=== PATIENT | female | born 1970 | race Caucasian/White ===

== ENCOUNTER 2016-07-04 19:54 | Inpatient (IN) ==
[2016-07-04] MEDS ORDERED: ASPIRIN 325 MG TABLET PO STA (20:25)
[2016-07-04] MEDS ORDERED: ONDANSETRON 4 MG/2 ML VIAL IV STA (20:25)
[2016-07-04] MEDS ORDERED: FUROSEMIDE 100 MG/10 ML VIAL IV STA (20:25)
[2016-07-04] MEDS ORDERED: NITROGLYCERIN 2% OINT 1 INCH/GM PACK TOP STA (20:25)
[2016-07-04] MEDS ORDERED: MORPHINE 2 MG/1 ML SYRINGE IV STA (20:25)
[2016-07-04] MEDS ORDERED: hydrALAZINE 20 MG/1 ML VIAL IV STA ×2 (20:25→21:09)
--- NOTE | 2016-07-04 20:27 | Emergency Department Note ---
IJudith Kasabria, am scribing for, and in the presence of, Gustabo Ball MD 20:26. IQuinn Charles R, MD, personally performed the services described in this documentation, ascribed by Maria Del Carmen Wong in my presence, and it is both accurate and complete . Arrival - Arrival Chief Complaint: Blood Pressure Stated Complaint: BP and s. feet ED Nursing Triage Note: pt to triage c/o elevated blood pressure . pt states her bp has been up all. pt states she called dr kruger's office and was told to come to ed. pt lso c.o left knee pain. she slipped in the yard today. Mode of Arrival: Ambulatory Limitations: No Limitations Source: Patient Time Seen by Provider: 07/04/16 20:12 - History of Present Illness HPI Narrative: Pt is a 46 y/o white female presenting to the ED with c/o elevated blood pressure that onset this afternoon. Pt states she has intermittent chest pressure and intermittent SOB. While in the yard today she slipped and fell resulting in a contusion to her left knee. Pt sees Dr. Kruger and called his office today and was told to come to the ED. She denies fever, chills, nausea, vomiting, diarrhea, abdominal pain, numbness, tingling, [place], vision change, and vertigo. Pt is ambulatory but states it is hard to walk. Her PMHx consist of HTN , seizures, anxiety, COPD, and asthma. She has been off her seizure medications for some time and her last seizure has been over three years ago. Consistency: constant Severity: moderate Allergies/Adverse Reactions: Allergies Allergy/AdvReac Type Severity Reaction Status Date / Time No Known Allergies Allergy Unverified 07/04/16 20:07 Home Medications: Home Medications Medication Instructions Recorded Confirmed Type Aspirin EC Tab 81 mg PO DAILY 07/06/15 06/01/16 History Mometasone/Formoterol 200-5 2 puff INH BID 07/06/15 06/01/16 History [Dulera 200-5] Omeprazole [Prilosec] 20 mg PO DAILY 07/06/15 06/01/16 History Albuterol Sulfate [Proair HFA] 1 puff INH Q6H PRN 03/30/16 06/01/16 History Escitalopram [Lexapro] 10 mg PO BEDTIME 03/30/16 06/01/16 History Lisinopril/Hydrochlorothiazide 1 tablet PO DAILY 03/30/16 06/01/16 History [Lisinopril-Hctz 20-25 mg Tab] amLODIPine [Norvasc] 5 mg PO DAILY #90 tablet 03/31/16 06/01/16 Rx Ciprofloxacin Tab [Cipro Tab] 500 mg PO Q12HR 10 Days 06/01/16 Rx Dicyclomine Cap/Tab [Bentyl 20 mg PO QID PRN #20 tablet 06/01/16 Rx Cap/Tab] Ondansetron [Ondansetron Odt] 8 mg PO Q4H PRN #10 tab.rapdis 06/01/16 Rx Valsartan/Hydrochlorothiazide 1 each PO DAILY 06/01/16 06/01/16 History [Valsartan-Hctz 320-12.5 mg Tab] hydrALAZINE TAB [Apresoline Tab] 50 mg PO TID 06/01/16 06/01/16 History metroNIDAZOLE TAB [Flagyl Cap/Tab] 500 mg PO TID #30 tablet 06/01/16 Rx HYDROcodone/ACETAMIN 10-325 [[place] 1 tablet PO Q6H PRN 06/02/16 06/02/16 History 10-325] Acetaminophen Tab [Tylenol Tab] 325 mg PO Q4H PRN #0 tablet 06/05/16 Rx Atenolol 12.5 mg PO DAILY #30 tablet 06/05/16 Rx Review of System - Review of System 12 point system: reviewed and no additional remarkable complaints except as stated - Review of System Constitutional: Absent: chills, fever, weakness Eyes: Absent: vision change Head/Ears/Nose/Throat: Absent: nasal drainage Respiratory: Absent: cough, wheezing Cardiovascular: Present: chest pain (intermittent pressure ), dyspnea on exertion (intermittent ). Absent: syncope Gastrointestinal: Absent: abdominal pain, nausea, vomiting Genitourinary female: Absent: dysuria Musculoskeletal: Present: other (left knee contusion ). Absent: arm pain, back pain, leg pain, neck pain Skin: Absent: rash Neurological: Absent: headache, weakness, confusion, abnormal gait, vertigo Psychiatric: Absent: anxiety Endocrine: Absent: fatigue Hematological/Lymphatic: Absent: easy bleeding Allergic/Immunologic: Absent: facial swelling Medical,Surgical,& Family Hx - Medical History Cardio: History of: Cardiac Dysrhythmia (A-Fib), Hypertension, Cardiovascular Problems (implanted heart monitor) Psychological: History of: Anxiety Disorders Neurology: History of: Seizures (last seizure 2 years) Endocrine: History of: Dyslipidemia Respiratory: History of: Asthma, COPD, Obstructive Sleep Apnea (uses cpap) Genitourinary: History of: Bladder Problem (overactive bladder) Gastrointestinal: History of: GERD, GI Problems (abnormal ct abdomen-2016) No history of: Hemorrhoids, Hepatitis, Liver Problems Musculoskeletal: History of: Back/Neck Problems, Osteoporosis, Musculoskeletal Problems Hematology: No history of: Blood Transfusion Reaction Reproductive: History of: Abnormal Pap Smear (HPV), Reproductive Cancer ( cervical cancer) Other: History of: Cancer (cervical cancer) No history of: Anesthesia Reactions - Surgical History Cardiac Surgeries: Sugical HX of: Cardiac Surgery (cardiomyopathy) Patient Denies: Cardiac Catheterization HEENT Surgeries: Patient denies: Tonsilectomy & Adenoidectomy Abdominal Surgeries: Surgical HX of: Cholecystectomy Patient denies: Hernia Repair Reproductive Surgeries: Surgical HX of;: Hysterectomy (partial hyst with radiation) Patient denies;: Genitourinary Surgery Orthopedic Surgeries: Patient denies;: Orthopedic Surgery - Family History Family History: Reports;: Family Cancer (mother-breast), Family Diabetes (mother ), Family Heart Disease (mother) - Social History Smoking Status: Never smoker Frequency of Alcohol Use: None Type of Drug Use: None Exam Vital Signs: Vital Signs Temperature 96.8 F L 07/04/16 20:11 Pulse Rate 91 H 07/04/16 20:11 Respiratory Rate 18 07/04/16 20:11 Blood Pressure 181/148 07/04/16 20:11 O2 Sat by Pulse Oximetry 98 07/04/16 20:02 - General General appearance: alert, in no apparent distress - Head Head exam: Present: atraumatic, normocephalic, normal inspection - Eye Eye exam: Present: normal appearance, PERRL, EOMI - ENT ENT exam: Present: normal exam, normal oropharynx, mucous membranes moist, TM's normal bilaterally, normal external ear exam - Neck Neck exam: Present: normal inspection, full ROM, trachea midline. Absent: tenderness - Chest Chest inspection: Present: normal inspection, symmetric chest wall rise. Absent : tenderness - Respiratory Respiratory exam: Present: rales (at the base of lungs bilaterally ). Absent: normal lung sounds bilaterally, prolonged expiratory phase, wheezes - Cardiovascular Cardiovascular exam: Present: regular rate, normal rhythm, normal heart sounds - Abdominal Exam Abdominal exam: Present: soft, normal bowel sounds. Absent: distention, tenderness, guarding - Extremities Exam Extremities exam: Present: full ROM, normal capillary refill, pedal edema (+1 bilaterally ), other (contusion to left knee ). Absent: normal inspection, tenderness, calf tenderness - Back Exam Back exam: Present: normal inspection, full ROM. Absent: tenderness - Neurological Exam Neurological exam: Present: alert, oriented X3, CN II-XII intact, normal gait, reflexes normal - Psychiatric Psychiatric exam: Present: normal affect, normal mood - Skin Skin exam: Present: warm, dry, intact, normal color. Absent: rash, diaphoresis Course - Consultations Consultation #1: Hospitalist will admit patient Time: 22:13 Results - Labs CBC & BMP: 07/04/16 20:14 07/04/16 20:14 Lab Results: I have reviewed the patients labs Critical Care Time Critical Care Time: Yes Total Critical Care Time: 60 Disposition Clinical Impression: Malignant essential hypertension, Chest pain, Syncope, Dizzy spells, Polymorphic ventricular tachycardia Case discussed with: patient, patient's family Disposition: Still a Patient Condition: Stable Time of Disposition: 22:14
[2016-07-04 20:31] LABS: Basophils % 0.2 % (0.0-0.8); Eosinophils # 0.2 10*3/uL (0.0-0.87); Eosinophils % 1.8 % (0.00-10.9); Hematocrit 38.6 VOL% (35.7-47.0); Hemoglobin 12.1 GM/DL (12.0-16.0); Immature Granulocytes % 0.2 %; Immature Granulocytes Absolute 0.02 #; Lymphocytes # 2.4 10*3/uL (1.4-4.0); Lymphocytes % 25.5 % (21.3-54.2); Mean Corpuscular HGB Conc 31.3 GM/DL (32-36); Mean Corpuscular Hemoglobin 28 PG (27-34); Mean Corpuscular Volume 90.4 FL (87-102); Mean Platelet Volume 9.7 FL (9.6-12.0); Monocytes # 0.5 10*3/uL (0.11-0.8); Monocytes % 5.4 % (1.7-12.7); Neutrophils # 6.2 10*3/uL (1.4-7.4); Neutrophils % 66.9 % (38.7-73.9); Platelet Count 265 T/CUMM (130-400); Red Blood Count 4.27 MC/CUMM (3.8-5.5); Red Cell Distribution Width 13.2 % (9.3-17.3); White Blood Count 9.2 T/CUMM (4-12)
[2016-07-04] MEDS ORDERED: NITROGLYCERIN 2% OINT 1 INCH/GM PACK TOP ONE (20:32)
[2016-07-04] MEDS ORDERED: ONDANSETRON 4 MG/2 ML VIAL ONE (20:32)
[2016-07-04] MEDS ORDERED: MORPHINE 2 MG/1 ML SYRINGE ONE (20:32)
[2016-07-04] MEDS ORDERED: hydrALAZINE 20 MG/1 ML VIAL ONE (20:32)
[2016-07-04] MEDS ORDERED: FUROSEMIDE 100 MG/10 ML VIAL ONE (20:33)
[2016-07-04] MEDS ORDERED: ASPIRIN 325 MG TABLET ONE (20:33)
[2016-07-04 20:36] LABS: INR 0.9; PT Patient Result 9.8 SECS
--- NOTE | 2016-07-04 20:37 | EKG Report ---
Stationary ECG Study [facility] ER Test Date: 07/04/2016 8:36:18 PM Pat Name: MIKE ARIAS Department: Room: Gender: F Product Analyst: : 1970 Requested by: Gustabo Velarde Order Number: [id number] Reading MD: BRITTANY HADDAD Intervals [place] Rate: 83 P: 22 [place]: 172 QRS: -43 QRSD: 92 T: -30 QT: 375 QTc: 415 Interpretive Statements SINUS RHYTHM LEFT AXIS DEVIATION VOLTAGE CRITERIA FOR LVH POSSIBLE ANTERIOR MYOCARDIAL INFARCTION, PREVIOUSLY CITED Electronically Signed On 07-05-16 07:11:33 BELT BUILDER by BRITTANY HADDAD [email or web address]
--- NOTE | 2016-07-04 20:43 | XRay Report ---
XR chest 1V portable Indication: Shortness of breath Comparison: 01 June 2016 Findings: The cardiac size is enlarged similar to previous exam. The pulmonary vascularity is normal in caliber. No lung infiltrates, effusions, pneumothorax or other abnormality is demonstrated. Impression: No acute findings or significant changes. PROCEDURE INTERPRETED AT [facility] DEPARTMENT OF RADIOLOGY Final Report Signed by: Dr. Des He
[2016-07-04 20:47] LABS: Alanine Aminotransferase 20 U/L (13-56); Albumin 3.4 G/DL (3.4-5.0); Alkaline Phosphatase 119 U/L (45-117); Aspartate Amino Transferase 25 U/L (0-37); Bilirubin,Total < 0.39 MG/DL (0.2-1.0); Blood Urea Nitrogen 6 MG/DL (7-18); Calcium 8.8 MG/DL (8.5-10.1); Glucose 92 MG/DL (74-106); Magnesium 1.9 MG/DL (1.8-2.4); Osmolality,Calculated 285.7 MOS/KG (273-304); Potassium 4.2 MMOL/L (3.5-5.1); Sodium 145 MMOL/L (136-145); Total Protein 7.6 G/DL (6.4-8.3); Troponin I Only < 0.015 NG/ML (0.00-0.045)
--- NOTE | 2016-07-04 20:48 | XRay Report ---
XR tibia fibula LT Indication: Pain after falling injury Comparison: None available Findings: No evidence of fracture seen. The alignment of the joints appears normal. No degenerative change is present. No soft tissue abnormality is seen. Impression: No evidence of abnormality demonstrated PROCEDURE INTERPRETED AT [facility] DEPARTMENT OF RADIOLOGY Final Report Signed by: Dr. Des He
[2016-07-04 20:58] LABS: Apearance,Urine CLEAR (Clear); Bacteria,Urine Occasional /HPF (Few); Bilirubin,Urine Negative (Negative); Blood, Urine Negative (Negative); Glucose,Urine (UA) Negative (Negative); Ketones,Urine Negative (Negative); Nitrite,Urine Negative (Negative); Protein,Urine Negative; Squamous Epithelial Cell,Urine Occasional /HPF (0-10); Urine Color Colorless (Yellow); Urine Specific Gravity 1.001 (1.001-1.035); Urine Urobilinogen < 2.0 EU/DL (0.2-1.0); WBC,Urine <1 /HPF (0-6)
[2016-07-04 21:05] LABS: Barbiturates Screen,Urine Negative (Negative); Benzodiazepines Screen,Urine Negative (Negative); Cannabinoid Screen,Urine Negative (Negative); Opiate Screen,Urine Negative (Negative); Phencyclidine Screen,Urine Negative (Negative)
[2016-07-04] MEDS ORDERED: cloNIDine 0.1 MG TABLET PO STA (21:59)
[2016-07-04] MEDS ORDERED: cloNIDine 0.1 MG TABLET ONE (22:00)
--- NOTE | 2016-07-05 00:13 | Hospitalist History & Physical ---
Assessment and Plan (1) Hypertensive urgency, malignant Status: Acute Assessment and plan: improved in ER, monitor, Current Visit: No (2) First degree atrioventricular block by electrocardiogram Status: Acute Current Visit: Yes (3) Chest pain Status: Acute Assessment and plan: appears atypical, but pt has few risk factors, will c/s cardiology since pt has subq loop recorder placed Current Visit: Yes (4) Syncope Status: Acute Assessment and plan: c/s cardiology, recurrent, pt has loop recorder Current Visit: Yes (5) Left knee pain Status: Acute Assessment and plan: xray left knee, supportive care Current Visit: Yes (6) Morbid obesity Status: Chronic Current Visit: No (7) Urinary incontinence Status: Chronic Current Visit: No History of Present Illness Chief complaint: elevated BP History of present illness: Ms. Charlton is a 46 year old female presented to emergency department after states her BP was high in 200's/100's. Pt also reports she had intermittent CP and SOB. Pt was discharged first week of May/2016 after admitted for similar symptoms. Patient has a history of recurrent syncope and malignant hypertension and NENITA and obesity and a loop recorder was implanted last year and showed at some point polymorphic V. tach or V. fib that stayed for about 22 sec and then terminated in November 2015. Patient also had been EP study for her syncope and nonsustained ventricular arrhythmia. Currently patient denies nausea or vomiting or palpitation or shortness of breath or abdominal pain or blurred vision. Patient does have recurrent urinary incontinence which is chronic and feels bloated. Home Medications Medication Instructions Recorded Confirmed Type Aspirin EC Tab 81 mg PO DAILY 07/06/15 06/01/16 History Mometasone/Formoterol 200-5 2 puff INH BID 07/06/15 06/01/16 History [Dulera 200-5] Omeprazole [Prilosec] 20 mg PO DAILY 07/06/15 06/01/16 History Albuterol Sulfate [Proair HFA] 1 puff INH Q6H PRN 03/30/16 06/01/16 History Escitalopram [Lexapro] 10 mg PO BEDTIME 03/30/16 06/01/16 History Lisinopril/Hydrochlorothiazide 1 tablet PO DAILY 03/30/16 06/01/16 History [Lisinopril-Hctz 20-25 mg Tab] amLODIPine [Norvasc] 5 mg PO DAILY #90 tablet 03/31/16 06/01/16 Rx Ciprofloxacin Tab [Cipro Tab] 500 mg PO Q12HR 10 Days 06/01/16 Rx Dicyclomine Cap/Tab [Bentyl 20 mg PO QID PRN #20 tablet 06/01/16 Rx Cap/Tab] Ondansetron [Ondansetron Odt] 8 mg PO Q4H PRN #10 tab.rapdis 06/01/16 Rx Valsartan/Hydrochlorothiazide 1 each PO DAILY 06/01/16 06/01/16 History [Valsartan-Hctz 320-12.5 mg Tab] hydrALAZINE TAB [Apresoline Tab] 50 mg PO TID 06/01/16 06/01/16 History metroNIDAZOLE TAB [Flagyl Cap/Tab] 500 mg PO TID #30 tablet 06/01/16 Rx HYDROcodone/ACETAMIN 10-325 [[place] 1 tablet PO Q6H PRN 06/02/16 06/02/16 History 10-325] Acetaminophen Tab [Tylenol Tab] 325 mg PO Q4H PRN #0 tablet 06/05/16 Rx Atenolol 12.5 mg PO DAILY #30 tablet 06/05/16 Rx Allergies Allergy/AdvReac Type Severity Reaction Status Date / Time No Known Allergies Allergy Unverified 07/04/16 20:07 Medical,Surgical,& Family Hx - Medical History Cardio: History of: Cardiac Dysrhythmia (A-Fib), Hypertension, Cardiovascular Problems (implanted heart monitor) Psychological: History of: Anxiety Disorders Neurology: History of: Seizures (last seizure 2 years) Endocrine: History of: Dyslipidemia Respiratory: History of: Asthma, COPD, Obstructive Sleep Apnea (uses cpap) Genitourinary: History of: Bladder Problem (overactive bladder) Gastrointestinal: History of: GERD, GI Problems (abnormal ct abdomen-2016) No history of: Hemorrhoids, Hepatitis, Liver Problems Musculoskeletal: History of: Back/Neck Problems, Osteoporosis, Musculoskeletal Problems Hematology: No history of: Blood Transfusion Reaction Reproductive: History of: Abnormal Pap Smear (HPV), Reproductive Cancer ( cervical cancer) Other: History of: Cancer (cervical cancer) No history of: Anesthesia Reactions - Surgical History Cardiac Surgeries: Sugical HX of: Cardiac Surgery (cardiomyopathy) Patient Denies: Cardiac Catheterization HEENT Surgeries: Patient denies: Tonsilectomy & Adenoidectomy Abdominal Surgeries: Surgical HX of: Cholecystectomy Patient denies: Hernia Repair Reproductive Surgeries: Surgical HX of;: Hysterectomy (partial hyst with radiation) Patient denies;: Genitourinary Surgery Orthopedic Surgeries: Patient denies;: Orthopedic Surgery - Family History Family History: Reports;: Family Cancer (mother-breast), Family Diabetes (mother ), Family Heart Disease (mother) - Social History Smoking Status: Never smoker Frequency of Alcohol Use: None Type of Drug Use: None 12 point system: reviewed and no additional remarkable complaints except as stated Exam - Constitutional Vitals: Period Temp Pulse Resp BP Sys/Floyd Pulse Ox Last 24 Hr 96.8 F-96.8 F 91-91 18-18 181-181/148-148 98 Exam: Gen: a&ox3, NAD Neck: no JVD, supple Lung: distant BS, otherwise ctb, no wheezing Heart:RRR abd: soft, NT, distention, large habitus Ext:trace Bruno edema, no cyanosis skin: warm, dry Neuro: no M/S deficit, no facial droop or slurred speech, PERRL Results - Labs CBC & BMP: 07/04/16 20:14 07/04/16 20:14
[2016-07-05] MEDS ORDERED: DOCUSATE SODIUM 100 MG CAPSULE PO PRN (00:28)
[2016-07-05] MEDS ORDERED: ONDANSETRON 4 MG/2 ML VIAL IV PRN (00:28)
[2016-07-05] MEDS ORDERED: ACETAMINOPHEN 325 MG TABLET PO PRN (00:28)
[2016-07-05] MEDS: ENOXAPARIN 40 MG/0.4 ML SYRINGE SUBCUT SCH (02:26)
[2016-07-05] MEDS ORDERED: DICYCLOMINE 20 MG TABLET PO PRN (03:23)
[2016-07-05 05:39] LABS: Basophils % 0.1 % (0.0-0.8); Eosinophils # 0.2 10*3/uL (0.0-0.87); Hemoglobin 10.4 GM/DL (12.0-16.0); Immature Granulocytes % 0.3 %; Immature Granulocytes Absolute 0.02 #; Lymphocytes # 2.4 10*3/uL (1.4-4.0); Lymphocytes % 30.8 % (21.3-54.2); Mean Corpuscular HGB Conc 31.5 GM/DL (32-36); Mean Corpuscular Hemoglobin 28 PG (27-34); Mean Corpuscular Volume 88.7 FL (87-102); Mean Platelet Volume 9.7 FL (9.6-12.0); Monocytes # 0.5 10*3/uL (0.11-0.8); Monocytes % 6.5 % (1.7-12.7); Neutrophils # 4.7 10*3/uL (1.4-7.4); Neutrophils % 60.3 % (38.7-73.9); Platelet Count 246 T/CUMM (130-400); Red Blood Count 3.72 MC/CUMM (3.8-5.5); Red Cell Distribution Width 13.4 % (9.3-17.3); White Blood Count 7.9 T/CUMM (4-12)
[2016-07-05 06:07] LABS: Calcium 8.9 MG/DL (8.5-10.1); Osmolality,Calculated 284.8 MOS/KG (273-304); Potassium 3.8 MMOL/L (3.5-5.1)
[2016-07-05] MEDS: ALBUTEROL/IPRATROPIUM 3 ML NEB RESP TX SCH ×3 (06:52→19:24)
[2016-07-05] MEDS: LISINOPRIL/HCTZ 20-25 MG TABLET PO SCH (09:55)
[2016-07-05] MEDS: MOMETASONE/FORMOTEROL 200-5 INHALER 8.8 GM INH SCH ×2 (09:55→20:39)
[2016-07-05] MEDS: ATENOLOL 25 MG TABLET PO SCH (09:55)
[2016-07-05] MEDS: amLODIPine 5 MG TABLET PO SCH (09:56)
[2016-07-05] MEDS: PANTOPRAZOLE 40 MG TABLET PO SCH (09:56)
[2016-07-05] MEDS: ASPIRIN EC 81 MG TABLET PO SCH (09:56)
--- NOTE | 2016-07-05 14:23 | Hospitalist Progress Note ---
Assessment and Plan (1) Polymorphic ventricular tachycardia Status: Acute Assessment and plan: loop record implanted and cardiology consult pending for interrogation Current Visit: Yes (2) Malignant essential hypertension Status: Chronic Current Visit: Yes (3) Morbid obesity Status: Chronic Current Visit: No Hospitalist: Subjective Interval history: Patient seen and examined. She reports progressive SOB and leg swelling on the day of admission. She denied syncope or LOC. She states she slipped in the rain and her caught her before she fell. Exam - Constitutional Vitals: Period Temp Pulse Resp BP Sys/Floyd Pulse Ox Last 24 Hr 97.6 F-98.3 F 76-106 18-23 110-151/66-98 93-99 General appearance: no acute distress - Head Head exam: Present: normal inspection, normocephalic, atraumatic - Eye Eye exam: Present: EOMI Pupils: Present: RAMON - Respiratory Respiratory exam: Present: clear to auscultation bilaterally - Cardiovascular Cardiovascular exam: Present: regular rate and rhythm - GI/Abdominal GI/Abdominal exam: Present: normal bowel sounds, soft. Absent: tenderness, rebound - Extremities Exam Extremities exam: Present: normal inspection, full ROM. Absent: calf tenderness , edema - Neurological Exam Neurological exam: Present: alert, oriented X3 - Psychiatric Psychiatric exam: Present: normal affect, normal mood - Skin Skin exam: Present: normal color, warm, dry Results - Labs CBC & BMP: 07/05/16 05:23 07/05/16 05:23 Lab Results: I have reviewed the past 24 hour labs
--- NOTE | 2016-07-05 18:07 | ECHO Report ---
Denisha Charlton Exam Date: 07/05/2016 09:38 Referring Physician: Technologist: Julieta Lazar RDCS Age: 46 Ht (in): Wt (lb): Gender: F Exam Location: [facility] Echo Indications: Syncope and collapse, Tachycardia, unspecified, Chest pain, unspecified, Shortness of breath, Essential (primary) hypertension, NENITA, COPD BP: / HR: Rhythm: Sinus Technical Quality: Fair IMPRESSIONS 1. Left ventricle is normal size systolic function ejection fraction 50%. At worse mild concentric left ventricular hypertrophy. 2. Other cardiac chambers are normal size and function. 3. Cardiac valvular structures are anatomically normal and functionally normal with normal Doppler evaluation. 4. This is an unremarkable study. MEASUREMENTS (Male / Female) Normal Values 2D ECHO LV Diastolic Diameter PLAX 4.1 cm 4.2 - 5.9 / 3.9 - 5.3 cm LV Systolic Diameter PLAX 2.4 cm LV Fractional Shortening PLAX 40.9 % IVS Diastolic Thickness 1.1 cm 0.6 - 1.0 / 0.6 - 0.9 cm LVPW Diastolic Thickness 1.1 cm 0.6 - 1.0 / 0.6 - 0.9 cm RV Internal Dim ED PLAX 2.8 cm Aortic Root Diameter 2.8 cm LA Systolic Diameter LX 3.7 cm 3.0 - 4.0 / 2.7 - 3.8 cm FINDINGS Left Ventricle Normal left ventricular cavity size. Mild left ventricular hypertrophy. Left ventricular ejection fraction is estimated at 60 %. Right Ventricle The right ventricle is normal in size and function. Right Atrium The right atrium is normal in size. Left Atrium The left atrium is normal in size. Mitral Valve Morphologically normal mitral valve without significant stenosis or prolapse. There is no mitral regurgitation. Aortic Valve Morphologically normal aortic valve without significant sclerosis or stenosis. There is no aortic regurgitation. Tricuspid Valve Morphologically normal tricuspid valve without significant stenosis or regurgitation. Pulmonary artery systolic pressure is normal. Pulmonic Valve Morphologically normal pulmonic valve without significant stenosis. There is no pulmonic regurgitation. Pericardium Normal pericardium without effusion. Aorta Normal ascending aorta dimension. Robbie Herzog MD (Electronically Signed) Final Date: 05 July 2016 18:06
--- NOTE | 2016-07-05 18:09 | Cardiology Consult Note ---
IAbimael April, RN, am scribing for, and in the presence of, Robbie Herzog MD 18:00. Assessment and Plan - Time spent with patient Time spent with patient: Greater than 30 minutes (Due to assessment, planning, and documentation) (1) Chest pain Status: Chronic Assessment and plan: She is a long history this and his atypical noncardiac. No further evaluation. Current Visit: Yes (2) Dizzy spells Status: Chronic Assessment and plan: This is being evaluated. Her [employer] link monitor does not reveal any rhythm or rate disturbance though. Current Visit: Yes (3) Syncope Status: Chronic Assessment and plan: She reports her last syncopal episode was last summer. She's not had any episodes recently. Her [employer] link monitor has not revealed any rate or rhythm disturbance. Current Visit: No (4) Hypertension Status: Chronic Assessment and plan: Blood pressure with significant elevated. An emergent been stable at this time if not low. Current Visit: Yes History of Present Illness - Data of Consult Patient: known to practice within the last 3 years Consult date: 07/05/16 Requesting Physician: Rea De La Vega - Consult Narrative Reason for consult: Syncope, hypertension, edema History of present illness: Ms. Charlton is a 46 year old female who is routinely followed by Dr. Gonzalez and Dr. Kruger. She most recently saw Dr. Kruger in May of this year, she tells me she last saw Dr. Gonzalez in March of last year. She is a poor historian so I am obtaining much of her history from the chart. Patient tells me she has a history of hypertension, cervical cancer, lung disease, and obstructive sleep apnea. She says she has CPAP and uses it every night. According to her chart she also has a history of CAD, cardiomyopathy, GERD, hyperlipidemia, syncope, paroxysmal atrial fibrillation, seizures, and deep thrombo-phlebitis. She tells me her surgical history includes implantable loop recorder (the one she has and now is her second), EP study in March 2016, cholecystectomy, hysterectomy, and procedure for her cervical cancer. EP study that was done in March 2016 with no inducible sustained arrhythmia. She denied having a heart cath, but her chart indicates that she has had one in the past. I find no records of that here so it must have been done at [place]. Her chart also indicates history of vascular surgery. Family history includes heart disease, hypertension, diabetes, and cancer in her mother and Alzheimer's in her father. She reports she is a lifetime non-smoker. Patient states she was in her usual state of health when she woke up yesterday morning at some point yesterday afternoon her feet began to swell and her blood pressure went up. She tells me her systolic blood pressure got as high as 300. Blood pressure in the emergency room was noted to be 181/148. She also complains of dizziness palpitations, shortness of breath, and chest pain yesterday. She tells me she has all of this periodically. She reports having chest pain about every other day, yesterday it was a 7 or 8 on a scale of 1-10. It was a stabbing pain that went all the way across her chest, she noted no triggers or alleviators. It did not radiate, and she reports that it lasted for a few hours which she says is is typical of this pain. She denies having any syncope, she reports the last syncopal episode she had was last summer. She said she tripped yesterday and fell, abrasion noted to left knee. She denies frequent falls, saying this is the first time she has ever fell. Currently patient is resting in bed in no acute distress. She denies chest pain , shortness of breath, palpitations, dizziness, or feelings of syncope or near syncope. He has been given clonidine 0.2 p.o. 1 in the emergency department, hydralazine 10 mg IV 2 in the emergency department Lasix 60 mg IV 1 in the emergency department, as well as Nitro-Bid and morphine. Her blood pressures have improved, her most recent blood pressure was 136/74. She has trace edema to bilateral lower extremities, she reports this is improved from yesterday. Heart rates were noted to be in the 70s and 80s based on the vital sign record. EKG showed sinus rhythm with heart rate of 80. Her electrolytes and kidney function have been within normal range, troponin has been negative 2. Echo done at Dr. Kruger's office in February 2016 with ejection fraction 50%, mild concentric left ventricular hypertrophy with no significant valvular abnormalities present. Repeat echo has been done today. We will get the [employer] rep to interrogate her loop recorder. This patient's biggest complaint was her Trippi falling and hit her knee and this is stable. She was found to have elevated blood pressures are now normalizing is not little low. She has some chronic lung disease according to her history. She is on nebulized therapy here. Her chest x-ray her chest x- ray and admission does not reveal any acute changes. Her blood pressure via size of been stable here. Her workup as an outpatient has been unremarkable with echocardiogram. Her link monitor interrogation does not reveal any rate or rhythm disturbances. Echocardiogram this is a mission is unremarkable and normal. CC: Carlos Watson MD - Home Medications and Allergies Home Medications: Home Medications Medication Instructions Recorded Confirmed Type Aspirin EC Tab 81 mg PO DAILY 07/06/15 07/05/16 History Mometasone/Formoterol 200-5 2 puff INH BID 07/06/15 07/05/16 History [Dulera 200-5] Omeprazole [Prilosec] 20 mg PO DAILY 07/06/15 07/05/16 History Albuterol Sulfate [Proair HFA] 1 puff INH Q6H PRN 03/30/16 07/05/16 History Escitalopram [Lexapro] 10 mg PO BEDTIME 03/30/16 07/05/16 History Lisinopril/Hydrochlorothiazide 1 tablet PO DAILY 03/30/16 07/05/16 History [Lisinopril-Hctz 20-25 mg Tab] amLODIPine [Norvasc] 5 mg PO DAILY #90 tablet 03/31/16 07/05/16 Rx Ciprofloxacin Tab [Cipro Tab] 500 mg PO Q12HR 10 Days 06/01/16 07/05/16 Rx Dicyclomine Cap/Tab [Bentyl 20 mg PO QID PRN #20 tablet 06/01/16 07/05/16 Rx Cap/Tab] Ondansetron [Ondansetron Odt] 8 mg PO Q4H PRN #10 tab.rapdis 06/01/16 07/05/16 Rx Valsartan/Hydrochlorothiazide 1 each PO DAILY 06/01/16 07/05/16 History [Valsartan-Hctz 320-12.5 mg Tab] hydrALAZINE TAB [Apresoline Tab] 50 mg PO TID 06/01/16 07/05/16 History metroNIDAZOLE TAB [Flagyl Cap/Tab] 500 mg PO TID #30 tablet 06/01/16 07/05/16 Rx HYDROcodone/ACETAMIN 10-325 [[place] 1 tablet PO Q6H PRN 06/02/16 07/05/16 History 10-325] Acetaminophen Tab [Tylenol Tab] 325 mg PO Q4H PRN #0 tablet 06/05/16 07/05/16 Rx Atenolol 12.5 mg PO DAILY #30 tablet 06/05/16 07/05/16 Rx Allergies/Adverse Reactions: Allergies Allergy/AdvReac Type Severity Reaction Status Date / Time No Known Allergies Allergy Unverified 07/04/16 20:07 - Constitutional Constitutional: Present: as per HPI - EENT Eyes: Present: blurry vision, requires corrective lense Ears: Present: tinnitus. Absent: ear pain Nose, mouth and throat: Present: epistaxis (1, 2 weeks ago), sore throat - Cardiovascular Cardiovascular: Present: chest pain at rest, chest pain with activity, dyspnea on exertion, edema, orthopnea, palpitations. Absent: radiating jaw, neck or arm pain - Respiratory Respiratory: Present: dyspnea on exertion. Absent: cough, hemoptysis, wheezing - Gastrointestinal Gastrointestinal: Present: abdominal pain (She thinks this is related to her history of gastritis), constipation, diarrhea, nausea, vomiting. Absent: hematemesis, hematochezia, melena - Genitourinary Genitourinary: Present: urinary incontinence (She reports she has this when her blood pressure gets high). Absent: dysuria, hematuria - Musculoskeletal Musculoskeletal: Present: back pain. Absent: limited range of motion, muscle weakness - Neurological Neurological: Present: dizziness. Absent: abnormal gait, frequent falls - Psychiatric Psychiatric: Absent: anxiety, depression - Endocrine Endocrine: Present: fatigue - Hematologic/Lymphatic Hematologic/Lymphatic: Absent: easy bleeding, easy bruising Medical,Surgical,& Family Hx - Medical History Cardio: History of: Cardiac Dysrhythmia (A-Fib), Hypertension, Cardiovascular Problems (implanted heart monitor) Psychological: History of: Anxiety Disorders Neurology: History of: Seizures (last seizure 2 years) Endocrine: History of: Dyslipidemia Respiratory: History of: Asthma, COPD, Obstructive Sleep Apnea (uses cpap) Genitourinary: History of: Bladder Problem (overactive bladder) Gastrointestinal: History of: GERD Musculoskeletal: History of: Back/Neck Problems, Osteoporosis, Musculoskeletal Problems Reproductive: History of: Abnormal Pap Smear (HPV), Reproductive Cancer ( cervical cancer) Other: History of: Cancer (cervical cancer) - Surgical History Cardiac Surgeries: Sugical HX of: Cardiac Catheterization, Cardiac Surgery ( Implantable loop recorder) Abdominal Surgeries: Surgical HX of: Cholecystectomy Patient denies: Hernia Repair Reproductive Surgeries: Surgical HX of;: Hysterectomy (partial hyst with radiation) - Family History Family History: Reports;: Family Cancer (mother-breast), Family Diabetes (mother ), Family Heart Disease (mother), Family Hypertension (Mother) - Social History Smoking Status: Never smoker Have you smoked in the last 12 months: No Frequency of Alcohol Use: None Type of Drug Use: None Marital Status: Lives With:: Spouse Functional capacity: independent ambulation Physical Examination Vital Signs Temp Pulse Resp BP Pulse Ox 96.8 F L 91 H 18 181/148 98 07/04/16 20:02 07/04/16 20:02 07/04/16 20:02 07/04/16 20:02 07/04/16 20:02 General: Present: Appears Well, No Apparent Distress, Other (obese) HEENT: Present: PERRL, Mucus Membranes Moist Neck: Present: Supple Neck, Midline Trachea, No JVD/HJR, No Bruit Cardiac: Present: Reg Rate and Rhythm, No Murmur, Other (Probable loop recorder) Lungs: Present: Normal Breath Sounds, No Wheeze, Rales, Rhonchi. Absent: Oxygen Neuro: Absent: Essential Tremor Abdomen: Present: Soft, Active Bowel Sounds, Tender. Absent: Distended Skin: Present: Other (Abrasion noted to left knee) Musculoskeletal: Present: No Pain, Normal Range of Motion Gait: Present: Normal Gait Extremities: Present: Normal Gait, Normal Upper Extr. Pulses, Normal Lower Extr. Pulses, Edema (Trace edema to bilateral lower extremities) Result/EKG - Labs CBC & BMP: 07/05/16 05:23 07/05/16 05:23 Lab Results: I have reviewed the past 24 hour labs Labs: Laboratory Results - last 24 hr 07/05/16 07/05/16 07/05/16 05:23 05:23 05:23 WBC 7.9 RBC 3.72 L Hgb 10.4 L Hct 33.0 L MCV 88.7 MCH 28 MCHC 31.5 L RDW 13.4 Plt Count 246 MPV 9.7 Neut % (Auto) 60.3 Lymph % (Auto) 30.8 [place] % (Auto) 6.5 Eos % (Auto) 2.0 Baso % (Auto) 0.1 Neut # (Auto) 4.7 Lymph # (Auto) 2.4 [place] # (Auto) 0.5 Eos # (Auto) 0.2 Baso # (Auto) 0.0 Immature Gran % 0.3 Nucleated RBC % 0.0 Immature Gran # 0.02 Nucleated RBCs # 0.00 Sodium Potassium Chloride Carbon Dioxide Anion Gap BUN Creatinine GFR Calculation BUN/Creatinine Ratio Glucose Calculated Osmolality Calcium Troponin I B-Natriuretic Peptide 64 TSH 3rd Generation 3.180 07/05/16 07/05/16 05:23 05:23 WBC RBC Hgb Hct MCV MCH MCHC RDW Plt Count MPV Neut % (Auto) Lymph % (Auto) [place] % (Auto) Eos % (Auto) Baso % (Auto) Neut # (Auto) Lymph # (Auto) [place] # (Auto) Eos # (Auto) Baso # (Auto) Immature Gran % Nucleated RBC % Immature Gran # Nucleated RBCs # Sodium 144 Potassium 3.8 Chloride 102 Carbon Dioxide 31 Anion Gap 14.8 BUN 10 Creatinine 1.00 GFR Calculation 80 BUN/Creatinine Ratio 10.00 Glucose 104 Calculated Osmolality 284.8 Calcium 8.9 Troponin I < 0.015 B-Natriuretic Peptide TSH 3rd Generation - Impressions Impressions: ECG with sinus rhythm and possible left ventricle hypertrophy. There is nonspecific ST-T abnormalities. Echocardiogram: Trivial normal left ventricular size and systolic function. Other car chambers are normal size. Valve structures are normal. - EKG EKG results: interpreted by me EKG shows: sinus rhythm Mino Chow John Timothy, MD, personally performed the services described in this documentation, ascribed by Ivana Varghese RN in my presence, and it is both accurate and complete 808 .
[2016-07-05] MEDS ORDERED: ESCITALOPRAM 10 MG TABLET PO SCH (21:00)
[2016-07-06] MEDS: ALBUTEROL/IPRATROPIUM 3 ML NEB RESP TX SCH ×2 (00:16→06:49)
[2016-07-06] MEDS: LISINOPRIL/HCTZ 20-25 MG TABLET PO SCH (09:08)
[2016-07-06] MEDS: amLODIPine 5 MG TABLET PO SCH (09:09)
[2016-07-06] MEDS: ASPIRIN EC 81 MG TABLET PO SCH (09:09)
[2016-07-06] MEDS: ATENOLOL 25 MG TABLET PO SCH (09:09)
[2016-07-06] MEDS: PANTOPRAZOLE 40 MG TABLET PO SCH (09:09)
[2016-07-06] MEDS: ENOXAPARIN 40 MG/0.4 ML SYRINGE SUBCUT SCH (09:10)
[2016-07-06] MEDS: MOMETASONE/FORMOTEROL 200-5 INHALER 8.8 GM INH SCH (09:11)
--- NOTE | 2016-07-06 10:11 | Discharge Summary ---
Hospital Course - Hospital Course Hospital Course: 46-year-old white female with a history of malignant hypertension and paroxysmal ventricular fibrillation causing syncope. Patient is followed by electrophysiology Dr. Kruger. She was admitted to the hospital with an elevated blood pressure and lower extremity edema with questionable syncopal episode. Loop recorder was interrogated and showed no arrhythmias or irregularities. The patient's blood pressure has been well controlled on her home medications during this hospitalization. Echocardiogram was unremarkable. She was seen in consultation by cardiology Dr. Herzog. She is medically stable for discharge home. She did not undergo any procedures during this hospitalization. She did not have any adverse events during this hospitalization. The patient did not have a syncopal episode leading to this hospitalization. She tripped and her rain boots and fell striking her knee. She did not have loss of consciousness and did not have seizure activity and her loop recorder did not show any events. 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 - Time spent with patient Time with patient DS: Greater than 30 minutes (Total discharge time for this patient, including [id number] time, clinical documentation, medication reconciliation, and discharge planning was 34 minutes.) Diagnosis - Discharge Diagnosis (1) Polymorphic ventricular tachycardia Status: Resolved (2) Malignant essential hypertension Status: Chronic (3) Morbid obesity Status: Chronic Discharge Plan - Discharge Data Disposition: Disch To Home/Self Care Condition at Discharge: Stable Discharge Diet: advance to your usual diet Activity: resume usual activities as tolerated Hygiene: no restrictions Contact your physician if you experience:: Shortness of breath - Discharge Medications Continue Omeprazole [Prilosec] 20 mg PO DAILY Mometasone/Formoterol 200-5 [Dulera 200-5] 2 puff INH BID Aspirin EC Tab 81 mg PO DAILY Escitalopram [Lexapro] 10 mg PO BEDTIME Lisinopril/Hydrochlorothiazide [Lisinopril-Hctz 20-25 mg Tab] 1 tablet PO DAILY Albuterol Sulfate [Proair HFA] 1 puff INH Q6H PRN PRN Reason: Wheezing amLODIPine [Norvasc] 5 mg PO DAILY #90 tablet hydrALAZINE TAB [Apresoline Tab] 50 mg PO TID Valsartan/Hydrochlorothiazide [Valsartan-Hctz 320-12.5 mg Tab] 1 each PO DAILY Dicyclomine Cap/Tab [Bentyl Cap/Tab] 20 mg PO QID PRN #20 tablet PRN Reason: Abdominal Pain Ondansetron [Ondansetron Odt] 8 mg PO Q4H PRN #10 tab.rapdis PRN Reason: Nausea Acetaminophen Tab [Tylenol Tab] 325 mg PO Q4H PRN #0 tablet PRN Reason: fever, headache/body aches Atenolol 12.5 mg PO DAILY #30 tablet HYDROcodone/ACETAMIN 10-325 [[place] 10-325] 1 tablet PO Q6H PRN PRN Reason: Pain Discontinued Ciprofloxacin Tab [Cipro Tab] 500 mg PO Q12HR 10 Days metroNIDAZOLE TAB [Flagyl Cap/Tab] 500 mg PO TID #30 tablet - Follow Up or Referral Follow Up: Severiano Kruger MD [Physician] - - Forms/Instructions Exam - Constitutional Vitals: Period Temp Pulse Resp BP Sys/Floyd Pulse Ox Last 24 Hr 97.1 F-98.6 F 61-86 18-20 94-138/57-98 95-99 Exam: Constitutional System: no distress. No tremulousness. Head: Normocephalic, atraumatic. Ears, Nose and Throat System: No pain or tenderness. No epistaxis or discharge Eyes System: Pupils equal, round, and reactive. Extraocular muscles intact. Neck: Supple, without adenopathy, No jugular venous distention. No thyromegaly, neck mass, or prior surgery apparent. Respiratory System: Chest clear to auscultation. Cardiovascular System: Heart with regular rate and rhythm. No murmur. GI System: Abdomen soft, nontender. Normo active bowel sounds present. Musculoskeletal System: limbs with no pedal edema. Full distal pulses. Neurological System: No discernable sensory deficit. No aphasia Psychiatric System: Conversation is rational DS: Provider Date of admission: 07/05/16 00:28 Primary care physician: . No PCP Attending physician on admission: Rea De La Vega Consults: 07/05/16 02:16 Consult to Dietitian [CONS] Routine Reason for Dietitian: Diet Instruction 07/05/16 17:58 Consult to Physician [CONS] Routine Comment: confusion about CPAP use Consulting Provider: Suma Wiggins Consulting Provider Notified: No When should Consulting Provider be notified: In am Person Notified: JEFERSON Date Notified: 07/06/16 Time Notified: 09:04 Discharging clinician: Carlos Watson MD Expected date of discharge: 07/06/16
[2016-07-06 12:47] VITALS: BP 123/72
--- NOTE | 2016-07-06 12:49 | Sleep Medicine Consult ---
Assessment and Plan (1) Obstructive sleep apnea Status: Acute Assessment and plan: We will change her CPAP to an auto titration mode from 10-20 cm and schedule her for follow-up in 1 month to reassess. We need to continue to work on keeping her compliant with CPAP. Her CPAP machine appeared dirty and I stressed the importance of keeping her equipment clean as well. Current Visit: Yes (2) Malignant essential hypertension Status: Chronic Assessment and plan: The prevalence rate for obstructive sleep apnea patients with hypertension is 35 %. That rate can be as high as 80% in patients who require 4 or more medications for blood pressure control. Current Visit: Yes History of Present Illness Chief complaint: Obstructive sleep apnea History of present illness: Ms. Charlton is a 46 year old female who had been diagnosed with obstructive sleep apnea in 2005. It was mild, having an AHI of 5.8. She originally was treated with CPAP of 7 cm at that time and was re-titrated in 2011 and placed on 9 cm. She presented with persistent sleepiness and underwent re-titration and 2014 and was placed on 13 cm of CPAP. She was a more difficult titration on that study. She was admitted on this occasion for uncontrolled hypertension and did bring her CPAP machine with her but has been poorly compliant. She has only used it one day in the last 30 days and slept with it over 9 hours at night but had uncontrolled sleep apnea, having an AHI of 10.1 on CPAP. I reviewed the importance of compliance with CPAP for her for obstructive sleep apnea. She is scheduled for follow-up in August but based on these findings, we may need to make some changes in her pressure and see her sooner. Home Medications Medication Instructions Recorded Confirmed Type Aspirin EC Tab 81 mg PO DAILY 07/06/15 07/05/16 History Mometasone/Formoterol 200-5 2 puff INH BID 07/06/15 07/05/16 History [Dulera 200-5] Omeprazole [Prilosec] 20 mg PO DAILY 07/06/15 07/05/16 History Albuterol Sulfate [Proair HFA] 1 puff INH Q6H PRN 03/30/16 07/05/16 History Escitalopram [Lexapro] 10 mg PO BEDTIME 03/30/16 07/05/16 History Lisinopril/Hydrochlorothiazide 1 tablet PO DAILY 03/30/16 07/05/16 History [Lisinopril-Hctz 20-25 mg Tab] amLODIPine [Norvasc] 5 mg PO DAILY #90 tablet 03/31/16 07/05/16 Rx Dicyclomine Cap/Tab [Bentyl 20 mg PO QID PRN #20 tablet 06/01/16 07/05/16 Rx Cap/Tab] Ondansetron [Ondansetron Odt] 8 mg PO Q4H PRN #10 tab.rapdis 06/01/16 07/05/16 Rx Valsartan/Hydrochlorothiazide 1 each PO DAILY 06/01/16 07/05/16 History [Valsartan-Hctz 320-12.5 mg Tab] hydrALAZINE TAB [Apresoline Tab] 50 mg PO TID 06/01/16 07/05/16 History HYDROcodone/ACETAMIN 10-325 [[place] 1 tablet PO Q6H PRN 06/02/16 07/05/16 History 10-325] Acetaminophen Tab [Tylenol Tab] 325 mg PO Q4H PRN #0 tablet 06/05/16 07/05/16 Rx Atenolol 12.5 mg PO DAILY #30 tablet 06/05/16 07/05/16 Rx Allergies Allergy/AdvReac Type Severity Reaction Status Date / Time No Known Allergies Allergy Unverified 07/04/16 20:07 Review of systems: Otherwise unremarkable other than as stated in HPI from a sleep standpoint. Exam (Pulmon[place]) H&P - Constitutional Vitals: Period Temp Pulse Resp BP Sys/Floyd Pulse Ox Last 24 Hr 97.1 F-98.6 F 61-85 18-20 94-124/57-84 95-99 Exam: She is alert and answers questions appropriately. Pupils equal round reactive to light and accommodation. Extraocular movements intact. Oropharynx without lesion in class III or IV Mallampati exam. Neck is supple without adenopathy or thyromegaly. No supraclavicular adenopathy. Chest with symmetrical breath sounds without focal wheeze, rhonchi, or rales. Cardiac exam reveals a regular rhythm without murmur or gallop. Abdomen obese nontender without palpable hepatosplenomegaly or mass. Extremities are without clubbing, cyanosis, or edema. Neurologically, she is grossly intact. She moves all extremities with good strength and ambulates with a normal gait. Medical,Surgical,& Family Hx - Medical History Cardio: History of: Cardiac Dysrhythmia (A-Fib), Hypertension, Cardiovascular Problems (implanted heart monitor) Psychological: History of: Anxiety Disorders Neurology: History of: Seizures (last seizure 2 years) Endocrine: History of: Dyslipidemia Respiratory: History of: Asthma, COPD, Obstructive Sleep Apnea (uses cpap) Genitourinary: History of: Bladder Problem (overactive bladder) Gastrointestinal: History of: GERD, GI Problems (abnormal ct abdomen-2016) No history of: Hemorrhoids, Hepatitis, Liver Problems Musculoskeletal: History of: Back/Neck Problems, Osteoporosis, Musculoskeletal Problems Hematology: No history of: Blood Transfusion Reaction Reproductive: History of: Abnormal Pap Smear (HPV), Reproductive Cancer ( cervical cancer) Other: History of: Cancer (cervical cancer) No history of: Anesthesia Reactions - Surgical History Cardiac Surgeries: Sugical HX of: Cardiac Catheterization, Cardiac Surgery ( Implantable loop recorder) HEENT Surgeries: Patient denies: Tonsilectomy & Adenoidectomy Abdominal Surgeries: Surgical HX of: Cholecystectomy Patient denies: Hernia Repair Reproductive Surgeries: Surgical HX of;: Hysterectomy (partial hyst with radiation) Patient denies;: Genitourinary Surgery Orthopedic Surgeries: Patient denies;: Orthopedic Surgery - Family History Family History: Reports;: Family Cancer (mother-breast), Family Diabetes (mother ), Family Heart Disease (mother), Family Hypertension (Mother) - Social History Smoking Status: Never smoker Frequency of Alcohol Use: None Type of Drug Use: None Results - Labs CBC & BMP: 07/05/16 05:23 07/05/16 05:23 Lab Results: I have reviewed the past 24 hour labs Specialty Discharge - Follow Up or Referrals Follow up with: Severiano Kruger MD [Physician] - 07/20/16 1:10 pm
== END 2016-07-06 13:50 | disposition home or self-care (01) | DRG 305 ==
LOC: N.ED 19:54 → N.EDINP 07-05 00:28 → SUATTDRO 07-05 00:28 → N.2E 07-05 01:18
PROVIDERS: ADMIT Student in an Organized Health Care Education/Training Program; ATTEND Family Medicine